=== PATIENT | female | born 1940 | race Caucasian/White ===

== ENCOUNTER → 2019-05-09 | Outpatient (CLI) | payer MEDICARE ==
[~2019-05-09] MED LIST: BACL10TA PO; CYCL30DR OU; LATA2.5D2 OU
== END | disposition home or self-care (01) ==
LOC: RAH 08:41
PROVIDERS: ATTEND Internal Medicine
DX: K04.7 Periapical abscess without sinus (principal); R59.1 Generalized enlarged lymph nodes; J34.2 Deviated nasal septum; J32.8 Other chronic sinusitis; M47.812 Spondylosis without myelopathy or radiculopathy, cervical region
CPT/HCPCS: 70486; 70490

== ENCOUNTER → 2019-05-14 | Outpatient (CLI) | payer MEDICARE | END | disposition home or self-care (01) | LOC: RAH 08:43 | PROVIDERS: ATTEND Internal Medicine | DX: E03.9 Hypothyroidism, unspecified (principal) | CPT/HCPCS: 76536 ==

== ENCOUNTER → 2022-12-20 | Outpatient (CLI) | payer MEDICARE ==
[~2022-12-20] MED LIST changes: +LATA2.5D14 OU; -LATA2.5D2 OU
== END | disposition home or self-care (01) ==
LOC: RAH 11:02
PROVIDERS: ATTEND Internal Medicine
DX: G50.0 Trigeminal neuralgia (principal); G50.8 Other disorders of trigeminal nerve; H20.9 Unspecified iridocyclitis; H18.453 Nodular corneal degeneration, bilateral
CPT/HCPCS: 70551

== ENCOUNTER → 2023-03-06 | Outpatient (CLI) | payer MEDICARE | END | disposition home or self-care (01) | LOC: RAH 12:25 | PROVIDERS: ATTEND Internal Medicine | DX: E06.3 Autoimmune thyroiditis (principal); R76.8 Other specified abnormal immunological findings in serum | CPT/HCPCS: 76536 ==